=== PATIENT | female | born 1980 | race Caucasian/White ===

== ENCOUNTER 2018-11-28 22:56 | Emergency (ER) | payer BC, OTHER ==
[2018-11-29] MEDS: PANTOPRAZOLE (EC) 40 MG TAB PO (02:51)
[2018-11-29 03:18] LABS: URINE PH (Dip) POC 5.5 (5.0-8.5)
[2018-11-29 03:18] LABS: URINE BLOOD (Dip) POC Negative (NEGATIVE); URINE GLUCOSE (Dip) POC Negative (NEGATIVE); URINE KETONES (Dip) POC Negative (NEGATIVE); URINE LEUKOCYTE EST (Dip) POC Negative (NEGATIVE); URINE NITRITE (Dip) POC Negative (NEGATIVE); URINE TOTAL PROTEIN POC Negative (NEGATIVE)
[2018-11-29] MEDS: HYDROCODONE/APAP (5/325) TAB PO (03:45)
[2018-11-29] MEDS: ONDANSETRON (ODT) 4 MG TAB ODT (03:45)
== END 2018-11-29 04:24 | disposition home or self-care (01) ==
LOC: E/R 22:56
DX: K80.20 Calculus of gallbladder without cholecystitis without obstruction (principal)
CPT/HCPCS: 76705; 81003; 81025; 93005; 99284-25